=== PATIENT | female | born 1990 | race Caucasian/White ===

== ENCOUNTER 2021-10-21 01:28 | Emergency (ER) | payer MEDICAID ==
[~2021-10-21] VITALS: Ht 162.6 cm; Wt 59.0 kg
[2021-10-21 01:57] VITALS: BP_SYST 132
[2021-10-21] MEDS ORDERED: ONDANSETRON HCL 4 MG/2 ML VIAL IVP ONE (02:30)
[2021-10-21] MEDS ORDERED: NACL 0.9% 1,000 ML IV ONE ×2 (02:30→06:45)
[2021-10-21] MEDS ORDERED: MORPHINE 4 MG INJ. 4 MG/ML VIAL IVP ONE (02:30)
[2021-10-21 03:00] LABS: CALCIUM 9.3 mg/dL (8.4-11.0); CREATININE 0.81 mg/dL (0.55-1.30); POTASSIUM 3.1 mmol/L (3.5-5.1)
[2021-10-21] MEDS ORDERED: MORPHINE 4 MG INJ. 4 MG/ML VIAL ONE (03:10)
[2021-10-21 03:12] LABS: ALBUMIN 3.1 g/dL (3.4-4.8); TOTAL BILIRUBIN 0.5 mg/dL (0.0-1.0)
[2021-10-21 03:27] LABS: BASOPHILS # (AUTO) 0.1 K/uL (0.0-0.2); BASOPHILS % (AUTO) 0.2 % (0.0-2.0); HEMATOCRIT 41.8 % (36-48); HEMOGLOBIN 13.9 g/dL (12.0-16.0); LYMPHOCYTES # (AUTO) 1.2 K/uL (1.0-5.5); MEAN CORPUSCULAR HEMOGLOBIN 31 pg (27-31); MEAN CORPUSCULAR HGB CONC 33 % (32-36); MEAN CORPUSCULAR VOLUME 93 fL (79.0-98.0); MONOCYTES % (AUTO) 4.5 % (1.7-9.3); NEUTROPHILS # (AUTO) 20.9 K/uL (1.8-7.7); NEUTROPHILS % (AUTO) 90.3 % (40.0-70.0); PLATELET COUNT (AUTO) 259 K/uL (130-430); RED CELL DISTRIBUTION WIDTH 12.8 % (9.0-15.0); WHITE BLOOD COUNT (AUTO) 23.2 K/uL (4.8-10.8)
[2021-10-21 04:45] LABS: BILIRUBIN,URINE NEGATIVE (NEGATIVE); CLARITY/URINE CLEAR (CLEAR); COLOR,URINE YELLOW (YELLOW); GLUCOSE,URINE NEGATIVE (NEGATIVE); KETONES,URINE TRACE (NEGATIVE); LEUKOCYTE ESTERASE ,URINE TRACE (NEGATIVE); NITRITE, URINE POSITIVE (NEGATIVE); PROTEIN URINE 1+ (NEGATIVE); UROBILINOGEN,URINE 0.2 (0.2-1.0)
[2021-10-21 04:47] LABS: BLOOD, URINE TRACE (NEGATIVE)
[2021-10-21] MEDS ORDERED: cefTRIAXone 1 GM IVPB PREMIX 50 ML IV ONE (05:15)
[2021-10-21] MEDS ORDERED: cefTRIAXone 1 GM VIAL ONE (05:25)
[2021-10-21 05:47] LABS: BACTERIA,URINE MODERATE /HPF (None Seen); RBC,URINE 20-50 /HPF (0-3); WBC,URINE >100 /HPF (0-3)
[2021-10-21 05:48] LABS: MUCUS,URINE 2+ /LPF (None Seen); TRICHOMONAS,URINE None Seen /HPF (None Seen); YEAST,URINE Few /HPF (None Seen)
[2021-10-21] MEDS ORDERED: CEPH-548 PO (06:10)
[2021-10-21] MEDS ORDERED: LORazepam 2 MG/ML VIAL ONE (06:12)
[2021-10-21] MEDS ORDERED: LORazepam 2 MG/ML VIAL IVP ONE (06:15)
[2021-10-21] MEDS ORDERED: IOHEXOL 300mgI/mL,100 ML INFUS..BTL IV ONE (06:45)
[2021-10-21 07:15] VITALS: BP_SYST 117
== END 2021-10-21 06:50 | disposition home or self-care (01) ==
LOC: SED 01:28
DX: N39.0 Urinary tract infection, site not specified (principal); F10.239 Alcohol dependence with withdrawal, unspecified; F10.229 Alcohol dependence with intoxication, unspecified
CPT/HCPCS: 36415; 74177; 76376; 80053; 81000; 83690; 85025; 87086; 96361; 96365; 96375; 99285; J0696; J2060; J2270; J2405; J7030; Q9967

== ENCOUNTER 2022-09-30 23:07 | Emergency (ER) | payer MEDICAID ==
[~2022-09-30] VITALS: Ht 162.6 cm; Wt 68.0 kg
[~2022-09-30 23:07] MED LIST: CEPH-548 PO
[2022-09-30 23:10] VITALS: BP_SYST 156
--- NOTE | 2022-09-30 23:10 | NUR ---
Pt placed to ER bed 06. Pt c/o painful bump to posterior head that she noticed earlier today. Bump is below the site of an injury with laceration sustained 4 nights ago. Pt states that 4 nights ago she fell backwards and hit her head on stairs while intoxicated. She denies LOC at that time. Hematoma noted with a healing scab from a laceration. She noticed the painful bump beneath this injury earlier today.
--- NOTE | 2022-09-30 23:20 | NUR ---
Dr. Robles at bedside.
[2022-09-30] MEDS ORDERED: NAPR-688 PO (23:22)
[2022-09-30] MEDS ORDERED: CEPH-548 PO (23:22)
[2022-10-01 00:01] VITALS: BP_SYST 143
== END 2022-09-30 23:59 | disposition home or self-care (01) ==
LOC: SED 23:07
DX: S01.01XA Laceration without foreign body of scalp, initial encounter (principal); R59.1 Generalized enlarged lymph nodes; Z79.899 Other long term (current) drug therapy; X58.XXXA Exposure to other specified factors, initial encounter; Y93.89 Activity, other specified; Y92.89 Other specified places as the place of occurrence of the external cause; Y99.8 Other external cause status
CPT/HCPCS: 99283

== ENCOUNTER 2022-12-03 02:07 | Emergency (ER) | payer MEDICAID ==
[~2022-12-03] VITALS: Ht 162.6 cm; Wt 59.0 kg
[~2022-12-03 02:07] MED LIST changes: +NAPR-688 PO
[2022-12-03 02:11] VITALS: BP_SYST 147
--- NOTE | 2022-12-03 02:11 | NUR ---
Triaged and placed patient back to the waiting room. VSS. Denied any acute distress at this time. Instructed to notify ED staff for any changes in condition or worsening of symptoms while waiting to be seen by a provider. Patient verbalized understading.
--- NOTE | 2022-12-03 03:39 | NUR ---
Patient placed in ER Hallway bed 1 for evaluation. Bed placed in lowest position with 1 side rail up. Report given to Lan WOLFF for continuity of care. Instructed to notify ED staff for any changes in condition or worsening of symptoms while waiting to be seen by a provider. Patient verbalized understanding.
--- NOTE | 2022-12-03 04:18 | NUR ---
Dr. Madison Quiñones at bedside examining the patient.
--- NOTE | 2022-12-03 04:40 | NUR ---
Dr. Madison Quiñones at bedside.
[2022-12-03 05:05] VITALS: BP_SYST 147
--- NOTE | 2022-12-03 05:06 | NUR ---
Patient given written and verbal discharge instructions and verbalizes understanding. ER MD discussed with patient the results and treatment provided. Patient in stable condition. ID arm band removed. Rx of non given. Patient educated on pain management and to follow up with PMD. Pain Scale 0. Opportunity for questions provided and answered. Medication side effect fact sheet provided.
[2022-12-04] MEDS ORDERED: ONDA-8 TL (13:02)
[2022-12-04] MEDS ORDERED: LORA-259 PO (13:02)
== END 2022-12-03 05:06 | disposition home or self-care (01) ==
LOC: SED 02:07
DX: T81.30XA Disruption of wound, unspecified, initial encounter (principal); Z79.899 Other long term (current) drug therapy
CPT/HCPCS: 99281

== ENCOUNTER 2024-05-16 07:01 | Emergency (ER) | payer MEDICAID ==
[~2024-05-16] VITALS: Ht 162.6 cm; Wt 68.0 kg
[~2024-05-16 07:01] MED LIST changes: +LORA-259 PO; +ONDA-8 TL
[2024-05-16 07:07] VITALS: BP_SYST 123; PULSE 74; RESP 20; TEMP 98; O2SAT 98
[2024-05-16] MEDS: KETOROLAC TROMETHAMINE 30 MG VIAL IM ONE (07:48)
[2024-05-16] MEDS: DIPHTH,PERTUSS(ACELL),TET VAC 0.5 ML VIAL (Tdap) I.M. ONE (08:11)
[2024-05-16] MEDS ORDERED: BACITRACIN 1 GM OINT TP ONE (08:15)
[2024-05-16 08:22] VITALS: BP_SYST 123; PULSE 74; RESP 20; TEMP 98; O2SAT 98
== END 2024-05-16 08:22 | disposition home or self-care (01) ==
LOC: SED 07:01
DX: S62.635A Displaced fracture of distal phalanx of left ring finger, initial encounter for closed fracture (principal); Z23 Encounter for immunization; Z79.899 Other long term (current) drug therapy; Z79.2 Long term (current) use of antibiotics; W22.8XXA Striking against or struck by other objects, initial encounter; Y93.89 Activity, other specified; Y92.89 Other specified places as the place of occurrence of the external cause; Y99.8 Other external cause status
CPT/HCPCS: 99284; 26770; 73140; 90715; 81025; 90471; 96372; J1885